=== PATIENT | male | born 1950 | race Caucasian/White ===

== ENCOUNTER → 2023-03-04 | Outpatient (CLI) | payer MEDICARE ==
[~2023-03-04] MED LIST: ACULAR 3ML 3 ML5 ML; ALDACTONE25 M1 PO; AMOXICILLIN500 MG PO; ANUSOL-HC25 MG R; ASPIRIN ADULT L81 M2; ASPIRIN FOR CHI81 MG PO; ASPIRIN81 M1 PO; AUGMENTIN 875 M1 TAB PO; BETHANECHOL CHL10 MG PO; CARDIZEM CD300 MG PO; CARDIZEM CD360 MG PO; CARDIZEM LA240 MG PO; CARISOPRODOL350 M1 PO; CATAFLAM50 MG PO; CEFTIN250 MG PO; CIPRO500 MG PO; CIPROFLOXACIN500 MG PO; CLINDAMYCIN HC300 MG PO; COLACE100 MG PO; COUMADIN5 M2 PO; COUMADIN7.5 M1 PO; Coumadin5 MG PO; Coumadin7.5 MG PO; DALI500T PO; DALIRESP PO; DAYPRO600 M1 PO; DELTASONE5 MG PO; DILTIAZEM HCL240 M1 PO; DUONEB 3 MG/3 ML3 M1 INH; DUONEB 3 MG/3 ML3 M1 NEB; EFFIENT10 MG; FLEXERIL10 MG PO; FLEXERIL5 MG PO; FUROSEMIDE40 MG PO; HYDROCODONE BIT1 T11 PO; ISOSORBIDE30 MG PO; JANTOVEN5 MG PO; K-DUR 1010 MEQ; K-Dur 20MEQ20 MEQ PO; KCL PO; KLOR-CON M1010 MEQ PO; KLOR-CON M2020 MEQ PO; LASIX40 MG; LASIX40 MG PO; LEVAQUIN750 MG PO; LIDODERM 5% PATC1 EA T; LOMOTIL 0.025 M1 TA1 PO; LOPRESSOR50 MG; LOPRESSOR50 MG PO; MEDROL DOSEPAK4 MG PO; METHOCARBAMOL750 MG PO; METRONIDAZOLE500 MG PO; MIRALAX POWDER17 G1 PO; MIRALAX17 GM/DOSE PO; MUCINEX600 MG PO; NAPROSYN500 MG PO; NITROSTAT0.4 MG SL; NORCO 325 MG-51 TAB PO; NYSTATIN CREAM15 GM T; OCUFLOX 0.3% 5 M5 ML; OMEPRAZOLE DR20 MG PO; OXYGEN INH; PARAFON FORTE500 MG PO; PERCOCET 325 MG1 TA5 PO; PERCOCET 325 MG1 TA7 PO; PERCOCET 325 MG1 TA8 PO; POTASSIUM CHLO10 ME4 PO; POTASSIUM GLUCO80 MG PO; PRAVACHOL40 MG; PRAVACHOL40 MG PO; PREDNICOT20 MG PO; PREDNISONE20 MG PO; PRENATAL1 TA1 PO; PRILOSEC20 M1 PO; PRILOSEC20 MG PO; PROTONIX40 MG PO; PULMICORT RESP0.5 M1 INH; Percocet 325 MG1 TAB PO; ROBAXIN750 MG PO; ROBITUSSIN DM120 ML PO; SHOWERCH; SPIRIVA18 MCG PO; SYMBICORT1 AE1 INH; TOBREX OPHTH S2.5 ML OPH; TRAMADOL HCL50 MG PO; VIBRAMYCIN100 MG PO; VICODIN 5/500 505 MG PO; VICODIN 500 MG-1 TAB PO; VITAMIN D2000 IU PO; VOLTAREN50 M1 PO; ZESTRIL,PRINIVI10 MG; ZITHROMAX250 MG PO; ZOCOR40 MG; ZOCOR40 MG PO; ZOFRAN ODT4 MG SL; ZYLOPRIM100 MG PO; [UNRECOGNIZED DRUG - OTHER]
[2023-03-04 14:03] LABS: BASO # 0.1 10*3/uL (0.0-0.1); BASO % 0.7 % (0.0-1.0); EOS # 0.3 10*3/uL (0.0-0.4); EOS % 3.3 % (1.0-4.0); HEMATOCRIT 39.7 % (42.0-52.0); LYMPH # 1.7 10*3/uL (1.3-4.4); LYMPH % 20.9 % (27.0-41.0); MEAN CELL VOLUME 96.4 fl (80.0-94.0); MEAN CORPUSCULAR HGB 31.8 pg (27.0-31.0); MEAN PLATELET VOLUME 9.9 fl (9.6-12.3); MONO % 12.6 % (3.0-9.0); NEUT # 5.2 10*3/uL (2.3-7.9); NEUT % 62.3 % (47.0-73.0); PLATELET COUNT AUTOMATED 203 10*3/uL (130-400); RED BLOOD COUNT 4.12 10*6/uL (4.50-5.90); RED CELL DISTRI WIDTH 14.2 % (0-14.5); WHITE BLOOD COUNT 8.3 10*3/uL (4.8-10.8)
[2023-03-04 14:59] LABS: ALKALINE PHOSPHATASE 97 U/L (46-116); BUN 17 mg/dl (9-23); CHLORIDE 108 mmol/L (98-107); CHOLESTEROL 141 mg/dL (<200); LDL CHOLESTEROL 65 mg/dL (9-159); POTASSIUM 3.7 mmol/L (3.4-5.1); SGPT/ALT 16 U/L (10-49); TOTAL PROTEIN 6.3 gm/dL (6.0-8.0); TRIGLYCERIDES 93 mg/dl (<150)
== END | disposition home or self-care (01) ==
LOC: LAB 13:39
PROVIDERS: ATTEND Nurse Practitioner Family
DX: Z12.5 Encounter for screening for malignant neoplasm of prostate (principal); I48.91 Unspecified atrial fibrillation; E11.51 Type 2 diabetes mellitus with diabetic peripheral angiopathy without gangrene; I10 Essential (primary) hypertension; J44.9 Chronic obstructive pulmonary disease, unspecified; Z79.899 Other long term (current) drug therapy

== ENCOUNTER → 2023-03-16 | Outpatient (CLI) | payer MEDICARE | END | disposition home or self-care (01) | LOC: LAB 09:40 | PROVIDERS: ATTEND Nurse Practitioner Family | DX: R31.9 Hematuria, unspecified (principal) ==

== ENCOUNTER → 2023-06-02 | Outpatient (CLI) | payer MEDICARE ==
[2023-06-02 14:42] LABS: BASO # 0.1 10*3/uL (0.0-0.1); BASO % 0.7 % (0.0-1.0); EOS # 0.4 10*3/uL (0.0-0.4); HEMATOCRIT 39.8 % (42.0-52.0); LYMPH # 1.7 10*3/uL (1.3-4.4); LYMPH % 16.8 % (27.0-41.0); MEAN CELL VOLUME 100.8 fl (80.0-94.0); MEAN CORPUSCULAR HGB 32.9 pg (27.0-31.0); MEAN CORPUSCULAR HGB CONC 32.7 g/dl (33.0-37.0); MEAN PLATELET VOLUME 9.9 fl (9.6-12.3); MONO # 1.1 10*3/uL (0.1-1.0); MONO % 10.9 % (3.0-9.0); NEUT # 6.7 10*3/uL (2.3-7.9); NEUT % 67.3 % (47.0-73.0); PLATELET COUNT AUTOMATED 235 10*3/uL (130-400); RED BLOOD COUNT 3.95 10*6/uL (4.50-5.90); RED CELL DISTRI WIDTH 13.2 % (0-14.5)
[2023-06-02 15:00] LABS: URINE CREATININE RANDOM 132.76 mg/dL
[2023-06-02 15:01] LABS: ALKALINE PHOSPHATASE 85 U/L (46-116); BUN 19 mg/dl (9-23); CHLORIDE 108 mmol/L (98-107); CHOLESTEROL 129 mg/dL (<200); LDL CHOLESTEROL 58 mg/dL (9-159); POTASSIUM 4.5 mmol/L (3.4-5.1); SGPT/ALT 16 U/L (5-49); TOTAL PROTEIN 6.7 gm/dL (6.0-8.0); TRIGLYCERIDES 70 mg/dl (<150)
== END | disposition home or self-care (01) ==
LOC: LAB 14:10
PROVIDERS: ATTEND Nurse Practitioner Family
DX: R31.9 Hematuria, unspecified (principal); I48.20 Chronic atrial fibrillation, unspecified; G89.29 Other chronic pain; Z79.899 Other long term (current) drug therapy

== ENCOUNTER → 2023-06-07 | Outpatient (CLI) | payer MEDICARE | END | disposition home or self-care (01) | LOC: LAB 12:09 | PROVIDERS: ATTEND Nurse Practitioner Family | DX: D64.9 Anemia, unspecified (principal); R89.9 Unspecified abnormal finding in specimens from other organs, systems and tissues ==

== ENCOUNTER → 2023-09-16 | Outpatient (CLI) | payer MEDICARE ==
[2023-09-16 12:47] LABS: BASO # 0.1 10*3/uL (0.0-0.1); BASO % 0.8 % (0.0-1.0); EOS # 0.2 10*3/uL (0.0-0.4); EOS % 3.1 % (1.0-4.0); HEMATOCRIT 40.3 % (42.0-52.0); LYMPH # 1.5 10*3/uL (1.3-4.4); LYMPH % 19.6 % (27.0-41.0); MEAN CELL VOLUME 101.3 fl (80.0-94.0); MEAN CORPUSCULAR HGB 31.9 pg (27.0-31.0); MEAN CORPUSCULAR HGB CONC 31.5 g/dl (33.0-37.0); MEAN PLATELET VOLUME 9.7 fl (9.6-12.3); MONO # 0.8 10*3/uL (0.1-1.0); MONO % 10.8 % (3.0-9.0); NEUT # 5.1 10*3/uL (2.3-7.9); NEUT % 65.4 % (47.0-73.0); PLATELET COUNT AUTOMATED 186 10*3/uL (130-400); RED BLOOD COUNT 3.98 10*6/uL (4.50-5.90); RED CELL DISTRI WIDTH 13.6 % (0-14.5); WHITE BLOOD COUNT 7.8 10*3/uL (4.8-10.8)
[2023-09-16 14:04] LABS: ALKALINE PHOSPHATASE 90 U/L (46-116); BUN 13 mg/dl (9-23); CHLORIDE 105 mmol/L (98-107); CHOLESTEROL 126 mg/dL (<200); LDL CHOLESTEROL 54 mg/dL (9-159); POTASSIUM 3.8 mmol/L (3.4-5.1); SGPT/ALT 14 U/L (5-49); TOTAL PROTEIN 6.4 gm/dL (6.0-8.0); TRIGLYCERIDES 73 mg/dl (<150)
[2023-09-16 14:38] LABS: URINE CREATININE RANDOM 125.21 mg/dL
== END | disposition home or self-care (01) ==
LOC: LAB 12:29
PROVIDERS: ATTEND Nurse Practitioner Family
DX: E11.51 Type 2 diabetes mellitus with diabetic peripheral angiopathy without gangrene (principal); I48.20 Chronic atrial fibrillation, unspecified; D64.9 Anemia, unspecified; R31.9 Hematuria, unspecified; Z79.899 Other long term (current) drug therapy; G89.29 Other chronic pain

== ENCOUNTER → 2023-12-02 | Outpatient (CLI) | payer MEDICARE, OTHER ==
[2023-12-02 11:50] LABS: BASO # 0.1 10*3/uL (0.0-0.1); BASO % 0.7 % (0.0-1.0); EOS # 0.5 10*3/uL (0.0-0.4); EOS % 7.1 % (1.0-4.0); HEMATOCRIT 39.9 % (42.0-52.0); LYMPH # 1.9 10*3/uL (1.3-4.4); LYMPH % 25.4 % (27.0-41.0); MEAN CELL VOLUME 99.3 fl (80.0-94.0); MEAN CORPUSCULAR HGB 32.3 pg (27.0-31.0); MEAN CORPUSCULAR HGB CONC 32.6 g/dl (33.0-37.0); MEAN PLATELET VOLUME 9.8 fl (9.6-12.3); MONO # 0.7 10*3/uL (0.1-1.0); MONO % 9.5 % (3.0-9.0); NEUT # 4.2 10*3/uL (2.3-7.9); NEUT % 57.2 % (47.0-73.0); PLATELET COUNT AUTOMATED 187 10*3/uL (130-400); RED BLOOD COUNT 4.02 10*6/uL (4.50-5.90); RED CELL DISTRI WIDTH 14.1 % (0-14.5); WHITE BLOOD COUNT 7.3 10*3/uL (4.8-10.8)
[2023-12-02 12:00] LABS: URINE CREATININE RANDOM 135.65 mg/dL
[2023-12-02 12:09] LABS: ALKALINE PHOSPHATASE 106 U/L (46-116); BUN 13 mg/dl (9-23); CHLORIDE 104 mmol/L (98-107); CHOLESTEROL 144 mg/dL (<200); LDL CHOLESTEROL 73 mg/dL (9-159); POTASSIUM 3.9 mmol/L (3.4-5.1); SGPT/ALT 12 U/L (5-49); TOTAL PROTEIN 6.6 gm/dL (6.0-8.0); TRIGLYCERIDES 69 mg/dl (<150)
== END | disposition home or self-care (01) ==
LOC: LAB 11:26
PROVIDERS: ATTEND Nurse Practitioner Family
DX: I48.20 Chronic atrial fibrillation, unspecified (principal); G89.29 Other chronic pain; Z79.899 Other long term (current) drug therapy

== ENCOUNTER 2024-02-07 19:05 | Emergency (ER) | payer MEDICARE, OTHER ==
[~2024-02-07] VITALS: Ht 172.7 cm; Wt 122.5 kg
[2024-02-07 19:31] VITALS: BP 108/44
== END 2024-02-07 21:52 | disposition home or self-care (01) ==
LOC: ED 19:05
DX: S83.91XA Sprain of unspecified site of right knee, initial encounter (principal); I11.0 Hypertensive heart disease with heart failure; I25.10 Atherosclerotic heart disease of native coronary artery without angina pectoris; J44.9 Chronic obstructive pulmonary disease, unspecified; I50.9 Heart failure, unspecified; I48.91 Unspecified atrial fibrillation; Z96.651 Presence of right artificial knee joint; Z90.49 Acquired absence of other specified parts of digestive tract; Z98.890 Other specified postprocedural states; X50.1XXA Overexertion from prolonged static or awkward postures, initial encounter; Y93.01 Activity, walking, marching and hiking; Y92.89 Other specified places as the place of occurrence of the external cause; Y99.8 Other external cause status

== ENCOUNTER → 2024-03-01 | Outpatient (CLI) | payer MEDICARE, OTHER ==
[2024-03-01 14:23] LABS: BASO # 0.1 10*3/uL (0.0-0.1); EOS # 0.4 10*3/uL (0.0-0.4); HEMATOCRIT 39.6 % (42.0-52.0); LYMPH # 1.7 10*3/uL (1.3-4.4); LYMPH % 22.1 % (27.0-41.0); MEAN CELL VOLUME 98.8 fl (80.0-94.0); MEAN CORPUSCULAR HGB 33.2 pg (27.0-31.0); MEAN CORPUSCULAR HGB CONC 33.6 g/dl (33.0-37.0); MEAN PLATELET VOLUME 9.9 fl (9.6-12.3); MONO % 12.2 % (3.0-9.0); NEUT # 4.6 10*3/uL (2.3-7.9); NEUT % 59.4 % (47.0-73.0); PLATELET COUNT AUTOMATED 158 10*3/uL (130-400); RED BLOOD COUNT 4.01 10*6/uL (4.50-5.90); RED CELL DISTRI WIDTH 13.8 % (0-14.5); WHITE BLOOD COUNT 7.8 10*3/uL (4.8-10.8)
[2024-03-01 14:58] LABS: ALKALINE PHOSPHATASE 94 U/L (46-116); BUN 12 mg/dl (9-23); CHLORIDE 107 mmol/L (98-107); CHOLESTEROL 132 mg/dL (<200); LDL CHOLESTEROL 52 mg/dL (9-159); SGPT/ALT 15 U/L (5-49); TOTAL PROTEIN 6.2 gm/dL (6.0-8.0); TRIGLYCERIDES 106 mg/dl (<150)
== END | disposition home or self-care (01) ==
LOC: LAB 14:00
PROVIDERS: ATTEND Nurse Practitioner Family
DX: J44.9 Chronic obstructive pulmonary disease, unspecified (principal); G89.29 Other chronic pain; Z79.899 Other long term (current) drug therapy

== ENCOUNTER → 2024-03-13 | Outpatient (CLI) | payer MEDICARE, OTHER | END | disposition home or self-care (01) | LOC: ORTHO 10:49 | PROVIDERS: ATTEND Orthopaedic Surgery | DX: M17.12 Unilateral primary osteoarthritis, left knee (principal) ==

== ENCOUNTER → 2024-06-08 | Outpatient (CLI) | payer OTHER ==
[~2024-06-08] MED LIST changes: +DOXYCYCLINE HY100 M3 PO; +ELIQUIS5 M1 PO; +METFORMIN HYD1000 MG PO; +METOPROLOL SUCC25 M2 PO; +PENTOXIFYLLINE400 MG PO
[2024-06-08 14:13] LABS: BASO # 0.1 10*3/uL (0.0-0.1); BASO % 0.6 % (0.0-1.0); EOS # 0.4 10*3/uL (0.0-0.4); EOS % 4.8 % (1.0-4.0); HEMATOCRIT 42.8 % (42.0-52.0); MEAN CELL VOLUME 102.1 fl (80.0-94.0); MEAN CORPUSCULAR HGB 32.7 pg (27.0-31.0); MEAN PLATELET VOLUME 10.2 fl (9.6-12.3); MONO # 1.1 10*3/uL (0.1-1.0); MONO % 13.3 % (3.0-9.0); NEUT % 60.7 % (47.0-73.0); PLATELET COUNT AUTOMATED 172 10*3/uL (130-400); RED BLOOD COUNT 4.19 10*6/uL (4.50-5.90); RED CELL DISTRI WIDTH 13.6 % (0-14.5); WHITE BLOOD COUNT 8.2 10*3/uL (4.8-10.8)
[2024-06-08 14:24] LABS: ACT PARTIAL THROMBO TIME 28.8 SECONDS (20.0-32.1)
[2024-06-08 14:36] LABS: ALKALINE PHOSPHATASE 97 U/L (46-116); BUN 12 mg/dl (9-23); CHLORIDE 107 mmol/L (98-107); POTASSIUM 4.6 mmol/L (3.4-5.1); SGPT/ALT 12 U/L (5-49); TOTAL PROTEIN 6.7 gm/dL (6.0-8.0)
== END | disposition home or self-care (01) ==
LOC: LAB 13:40
PROVIDERS: ATTEND Student in an Organized Health Care Education/Training Program
DX: I48.91 Unspecified atrial fibrillation (principal); I49.3 Ventricular premature depolarization; I44.7 Left bundle-branch block, unspecified; I51.7 Cardiomegaly; Z95.1 Presence of aortocoronary bypass graft; Z71.89 Other specified counseling

== ENCOUNTER 2024-08-14 11:24 | Observation (INO) | payer OTHER ==
[~2024-08-14] VITALS: Ht 170.1 cm; Wt 108.9 kg
[2024-08-14 11:52] VITALS: BP 128/45
[2024-08-14 12:10] LABS: BASO # 0.1 10*3/uL (0.0-0.1); EOS # 0.3 10*3/uL (0.0-0.4); EOS % 4.1 % (1.0-4.0); MEAN CELL VOLUME 98.4 fl (80.0-94.0); MEAN CORPUSCULAR HGB 32.8 pg (27.0-31.0); MEAN CORPUSCULAR HGB CONC 33.3 g/dl (33.0-37.0); MEAN PLATELET VOLUME 9.8 fl (9.6-12.3); MONO # 0.6 10*3/uL (0.1-1.0); MONO % 9.2 % (3.0-9.0); NEUT # 4.4 10*3/uL (2.3-7.9); NEUT % 63.1 % (47.0-73.0); PLATELET COUNT AUTOMATED 202 10*3/uL (130-400); RED BLOOD COUNT 4.27 10*6/uL (4.50-5.90); RED CELL DISTRI WIDTH 13.4 % (0-14.5)
[2024-08-14 12:32] LABS: ALKALINE PHOSPHATASE 97 U/L (46-116); BUN 15 mg/dl (9-23); CHLORIDE 104 mmol/L (98-107); POTASSIUM 3.7 mmol/L (3.4-5.1); SGPT/ALT 17 U/L (5-49); TOTAL PROTEIN 6.4 gm/dL (6.0-8.0)
[2024-08-14] MEDS ORDERED: ACETAMINOPHEN 325 MG TAB PO PRN (15:15)
[2024-08-14] MEDS ORDERED: BISACODYL 5 MG TAB PO PRN (15:15)
[2024-08-14] MEDS ORDERED: Acetaminophen/Hydrocodone 5 MG/325 MG TABLET PO PRN (15:15)
[2024-08-14] MEDS ORDERED: DEXTROSE 10 % IN WATER 250 ML IV PRN (15:20)
[2024-08-14] MEDS ORDERED: ASPIRIN 325 MG TAB PO ONE (15:30)
[2024-08-14 16:03] VITALS: BP 121/60
[2024-08-14] MEDS ORDERED: INSULIN LISPRO 1 UNIT/0.01 ML SQ SCH (16:30)
[2024-08-14 20:23] VITALS: BP 127/41
[2024-08-14] MEDS ORDERED: APIXABAN 5 MG TAB PO SCH (22:00)
[2024-08-15] MEDS ORDERED: Regadenoson 0.4 MG/5 ML SYR IV ONE (05:24)
[2024-08-15 06:35] LABS: ACT PARTIAL THROMBO TIME 29.7 SECONDS (20.0-32.1)
[2024-08-15 06:41] LABS: BASO # 0.1 10*3/uL (0.0-0.1); BASO % 0.8 % (0.0-1.0); EOS # 0.5 10*3/uL (0.0-0.4); EOS % 6.3 % (1.0-4.0); HEMATOCRIT 42.2 % (42.0-52.0); MEAN CORPUSCULAR HGB 32.6 pg (27.0-31.0); MEAN CORPUSCULAR HGB CONC 32.5 g/dl (33.0-37.0); MEAN PLATELET VOLUME 10.4 fl (9.6-12.3); MONO # 0.9 10*3/uL (0.1-1.0); MONO % 10.6 % (3.0-9.0); NEUT % 58.8 % (47.0-73.0); PLATELET COUNT AUTOMATED 189 10*3/uL (130-400); RED CELL DISTRI WIDTH 13.5 % (0-14.5); WHITE BLOOD COUNT 8.4 10*3/uL (4.8-10.8)
[2024-08-15 06:42] LABS: MEAN CELL VOLUME 100.5 fl (80.0-94.0)
[2024-08-15 07:07] LABS: ALKALINE PHOSPHATASE 90 U/L (46-116); BUN 15 mg/dl (9-23); CHLORIDE 105 mmol/L (98-107); CHOLESTEROL 129 mg/dL (<200); LDL CHOLESTEROL 66 mg/dL (9-159); SGPT/ALT 17 U/L (5-49); TOTAL PROTEIN 6.1 gm/dL (6.0-8.0); TRIGLYCERIDES 65 mg/dl (<150)
[2024-08-15 08:05] LABS: VITAMIN D, 25-HYDROXY 45.3 ng/mL (30-100)
[2024-08-15] MEDS ORDERED: PERFLUTREN PROTEIN-A MICROSPHR 3 ML VIAL IV ONE (09:07)
[2024-08-15] MEDS ORDERED: ATORVASTATIN CALCIUM 40 MG TABLET PO SCH (10:00)
[2024-08-15] MEDS ORDERED: ASPIRIN, CHEWABLE 81 MG TAB PO SCH (10:00)
[2024-08-15] MEDS ORDERED: METOPROLOL SUCCINATE XR 25 MG TAB PO SCH (10:00)
[2024-08-15 11:09] VITALS: BP 118/56
[2024-08-15 12:00] VITALS: BP 118/56
== END 2024-08-15 17:09 | disposition left against medical advice (07) ==
LOC: ED 11:24 → EDHOLD 14:45 → 4E 08-15 09:17 → EDHOLD 08-15 09:17
PROVIDERS: Nurse Practitioner Family; Student in an Organized Health Care Education/Training Program; ADMIT Internal Medicine; ATTEND Internal Medicine
DX: E11.65 Type 2 diabetes mellitus with hyperglycemia (principal); R07.89 Other chest pain; E44.0 Moderate protein-calorie malnutrition; R06.02 Shortness of breath; R06.00 Dyspnea, unspecified; R60.0 Localized edema; J96.11 Chronic respiratory failure with hypoxia; I48.20 Chronic atrial fibrillation, unspecified; J44.9 Chronic obstructive pulmonary disease, unspecified; I25.10 Atherosclerotic heart disease of native coronary artery without angina pectoris; I73.9 Peripheral vascular disease, unspecified; Z79.4 Long term (current) use of insulin; Z79.899 Other long term (current) drug therapy

== ENCOUNTER → 2025-03-29 | Outpatient (CLI) | payer OTHER, MEDICAID | END | disposition home or self-care (01) | LOC: RAD 11:04 | PROVIDERS: ATTEND Nurse Practitioner Family | DX: M51.360 Other intervertebral disc degeneration, lumbar region with discogenic back pain only (principal) ==

== ENCOUNTER → 2025-04-02 | Outpatient (CLI) | payer OTHER, MEDICAID | END | disposition home or self-care (01) | LOC: CARD 14:45 | PROVIDERS: ATTEND Internal Medicine Cardiovascular Disease | DX: Z01.810 Encounter for preprocedural cardiovascular examination (principal); I48.91 Unspecified atrial fibrillation ==

== ENCOUNTER 2025-04-04 12:57 | Emergency (ER) | payer OTHER, MEDICAID ==
[2025-04-04 13:04] VITALS: BP 148/92
== END 2025-04-04 13:45 | disposition home or self-care (01) ==
LOC: ED 12:57
DX: H93.13 Tinnitus, bilateral (principal); H61.22 Impacted cerumen, left ear; Z87.891 Personal history of nicotine dependence; Z90.49 Acquired absence of other specified parts of digestive tract; Z98.890 Other specified postprocedural states; Z96.651 Presence of right artificial knee joint; Z79.899 Other long term (current) drug therapy

== ENCOUNTER 2025-04-30 14:38 | Inpatient (IN) | payer OTHER, MEDICAID ==
[~2025-04-30] VITALS: Ht 172.7 cm; Wt 136.2 kg
[2025-04-30 14:46] VITALS: BP 122/45
[2025-04-30] MEDS ORDERED: HYDROmorphONE Hydrochloride 0.5 MG/0.5 ML SYRINGE IV ONE ×2 (15:10→17:40)
[2025-04-30] MEDS ORDERED: SODIUM CHLORIDE 0.9% 500 ML IV ONE (15:10)
[2025-04-30] MEDS ORDERED: Ondansetron Hydrochloride 4 MG/2 ML VIAL IV ONE (15:10)
[2025-04-30] MEDS ORDERED: IOHEXOL 300 MG/ML 100 ML VIAL IV ONE (15:15)
[2025-04-30 15:26] LABS: BASO # 0.0 10*3/uL (0.0-0.1); BASO % 0.4 % (0.0-1.0); EOS # 0.4 10*3/uL (0.0-0.4); EOS % 3.7 % (1.0-4.0); MEAN CELL VOLUME 101.3 fl (80.0-94.0); MEAN CORPUSCULAR HGB 33.1 pg (27.0-31.0); MEAN PLATELET VOLUME 9.7 fl (9.6-12.3); MONO # 1.0 10*3/uL (0.1-1.0); MONO % 10.1 % (3.0-9.0); NEUT # 7.1 10*3/uL (2.3-7.9); NEUT % 73.7 % (47.0-73.0); NUCLEATED RED BLOOD CELL 0.0 % (0.0-0.0); NUCLEATED RED BLOOD CELL 0.0 10*3/uL (0.0-0.0); PLATELET COUNT AUTOMATED 207 10*3/uL (130-400); RED CELL DISTRI WIDTH 13.4 % (0-14.5)
[2025-04-30 15:48] LABS: BUN 14 mg/dl (9-23); SGPT/ALT 18 U/L (5-49)
[2025-04-30 20:07] VITALS: BP 123/52
[2025-04-30] MEDS ORDERED: ACETAMINOPHEN 325 MG TAB PO PRN (20:15)
[2025-04-30] MEDS ORDERED: Ondansetron Hydrochloride 4 MG/2 ML VIAL IV PRN (20:15)
[2025-04-30] MEDS ORDERED: SODIUM CHLORIDE 0.9% 1,000 ML IV SCH (20:30)
[2025-04-30] MEDS ORDERED: DEXTROSE 50% 25 GM/50 ML VIAL IV PRN (20:40)
[2025-04-30] MEDS ORDERED: BUDESONIDE 0.5 MG AMP NEB SCH (20:50)
[2025-04-30 21:20] LABS: BILIRUBIN Negative (Negative); BLOOD 3+ (Negative); CLARITY Clear (Clear); COLOR Yellow (Yellow); KETONE Negative (Negative); LEUKO ESTERASE 1+ (Negative); NITRITE Negative (Negative); PH 5.5 (4.5-8.0); SPECIFIC GRAVITY >= 1.030 (1.001-1.030); UROBILINOGEN 0.2 E.U./dl (0.0-1.0)
[2025-04-30 21:33] LABS: BACTERIA 1+; RBC TNTC rbc/hpf (0-2)
[2025-04-30] MEDS ORDERED: INSULIN LISPRO 1 UNIT/0.01 ML SQ SCH (22:00)
[2025-05-01 01:12] VITALS: BP 100/41
[2025-05-01] MEDS ORDERED: PANTOPRAZOLE SODIUM IV SCH (06:00)
[2025-05-01 06:15] LABS: ACT PARTIAL THROMBO TIME 28.0 SECONDS (20.0-32.1)
[2025-05-01 06:38] LABS: FREE T4 0.88 ng/dl (0.89-1.76)
[2025-05-01 08:00] VITALS: BP 103/52
[2025-05-01] MEDS ORDERED: METOPROLOL SUCCINATE XR 25 MG TAB PO SCH (10:00)
[2025-05-01] MEDS ORDERED: Budesonide/Formoterol Fumarate 160/4.5 inhaler INH SCH (10:00)
== END 2025-05-01 11:13 | disposition home or self-care (01) | DRG 392 ==
LOC: ED 14:38 → EDHOLD 19:55 → 5E 19:55
PROVIDERS: Nurse Practitioner Family; ADMIT Internal Medicine; ATTEND Internal Medicine
DX: K59.9 Functional intestinal disorder, unspecified (principal); N39.0 Urinary tract infection, site not specified; K56.7 Ileus, unspecified; I48.20 Chronic atrial fibrillation, unspecified; E44.0 Moderate protein-calorie malnutrition; Z68.42 Body mass index [BMI] 45.0-49.9, adult; K74.60 Unspecified cirrhosis of liver; I25.10 Atherosclerotic heart disease of native coronary artery without angina pectoris; I10 Essential (primary) hypertension; J44.9 Chronic obstructive pulmonary disease, unspecified; N28.1 Cyst of kidney, acquired; E11.65 Type 2 diabetes mellitus with hyperglycemia; D53.9 Nutritional anemia, unspecified; E11.42 Type 2 diabetes mellitus with diabetic polyneuropathy; Z96.651 Presence of right artificial knee joint; Z93.3 Colostomy status; Z79.899 Other long term (current) drug therapy; Z79.01 Long term (current) use of anticoagulants; Z79.2 Long term (current) use of antibiotics; Z90.49 Acquired absence of other specified parts of digestive tract; Z87.891 Personal history of nicotine dependence; Z82.49 Family history of ischemic heart disease and other diseases of the circulatory system; Z80.8 Family history of malignant neoplasm of other organs or systems

== ENCOUNTER → 2025-05-17 | Outpatient (CLI) | payer OTHER, MEDICAID | END | disposition home or self-care (01) | LOC: RAD 09:46 | PROVIDERS: ATTEND Nurse Practitioner Family | DX: J44.1 Chronic obstructive pulmonary disease with (acute) exacerbation (principal); R06.09 Other forms of dyspnea ==

== ENCOUNTER → 2025-05-22 | Outpatient (CLI) | payer OTHER, MEDICAID | END | disposition home or self-care (01) | LOC: WOUNDCARE 04:22 | PROVIDERS: ATTEND Nurse Practitioner Family | DX: E11.622 Type 2 diabetes mellitus with other skin ulcer (principal); L97.812 Non-pressure chronic ulcer of other part of right lower leg with fat layer exposed; L97.822 Non-pressure chronic ulcer of other part of left lower leg with fat layer exposed; L89.311 Pressure ulcer of right buttock, stage 1; I89.0 Lymphedema, not elsewhere classified; I87.2 Venous insufficiency (chronic) (peripheral); R60.9 Edema, unspecified; B35.1 Tinea unguium; L60.1 Onycholysis; J44.9 Chronic obstructive pulmonary disease, unspecified; I48.91 Unspecified atrial fibrillation; I25.10 Atherosclerotic heart disease of native coronary artery without angina pectoris; E11.51 Type 2 diabetes mellitus with diabetic peripheral angiopathy without gangrene; Z87.891 Personal history of nicotine dependence; Z96.651 Presence of right artificial knee joint; Z95.5 Presence of coronary angioplasty implant and graft; Z93.3 Colostomy status; Z86.73 Personal history of transient ischemic attack (TIA), and cerebral infarction without residual deficits ==

== ENCOUNTER → 2025-05-29 | Outpatient (CLI) | payer OTHER, MEDICAID | END | disposition home or self-care (01) | LOC: WOUNDCARE 03:09 | PROVIDERS: ATTEND Nurse Practitioner Family | DX: L89.311 Pressure ulcer of right buttock, stage 1 (principal); E11.622 Type 2 diabetes mellitus with other skin ulcer; L97.812 Non-pressure chronic ulcer of other part of right lower leg with fat layer exposed; L97.822 Non-pressure chronic ulcer of other part of left lower leg with fat layer exposed; I89.0 Lymphedema, not elsewhere classified; I87.2 Venous insufficiency (chronic) (peripheral); R60.9 Edema, unspecified; B35.1 Tinea unguium; L60.1 Onycholysis; J44.9 Chronic obstructive pulmonary disease, unspecified; I48.91 Unspecified atrial fibrillation; I25.10 Atherosclerotic heart disease of native coronary artery without angina pectoris; E11.51 Type 2 diabetes mellitus with diabetic peripheral angiopathy without gangrene; Z87.891 Personal history of nicotine dependence; Z96.651 Presence of right artificial knee joint; Z95.5 Presence of coronary angioplasty implant and graft; Z93.3 Colostomy status ==

== ENCOUNTER → 2025-06-07 | Outpatient (CLI) | payer OTHER, MEDICAID | END | disposition home or self-care (01) | LOC: WOUNDCARE 02:52 | PROVIDERS: ATTEND Nurse Practitioner Family | DX: L89.311 Pressure ulcer of right buttock, stage 1 (principal); E11.622 Type 2 diabetes mellitus with other skin ulcer; L97.812 Non-pressure chronic ulcer of other part of right lower leg with fat layer exposed; L97.822 Non-pressure chronic ulcer of other part of left lower leg with fat layer exposed; I87.2 Venous insufficiency (chronic) (peripheral); I89.0 Lymphedema, not elsewhere classified; R60.9 Edema, unspecified; B35.1 Tinea unguium; L60.1 Onycholysis; E11.51 Type 2 diabetes mellitus with diabetic peripheral angiopathy without gangrene; I48.91 Unspecified atrial fibrillation; I25.10 Atherosclerotic heart disease of native coronary artery without angina pectoris; J44.9 Chronic obstructive pulmonary disease, unspecified; Z87.891 Personal history of nicotine dependence; Z96.651 Presence of right artificial knee joint; Z95.5 Presence of coronary angioplasty implant and graft; Z93.3 Colostomy status; Z86.73 Personal history of transient ischemic attack (TIA), and cerebral infarction without residual deficits ==

== ENCOUNTER → 2025-06-08 | Outpatient (CLI) | payer OTHER, MEDICAID | END | disposition home or self-care (01) | LOC: WOUNDCARE 09:21 | PROVIDERS: ATTEND Nurse Practitioner Family | DX: L89.892 Pressure ulcer of other site, stage 2 (principal); E11.622 Type 2 diabetes mellitus with other skin ulcer; L97.812 Non-pressure chronic ulcer of other part of right lower leg with fat layer exposed; L97.822 Non-pressure chronic ulcer of other part of left lower leg with fat layer exposed; L89.311 Pressure ulcer of right buttock, stage 1; L60.1 Onycholysis; I89.0 Lymphedema, not elsewhere classified; I87.2 Venous insufficiency (chronic) (peripheral); R60.9 Edema, unspecified; E11.51 Type 2 diabetes mellitus with diabetic peripheral angiopathy without gangrene; B35.1 Tinea unguium; J44.9 Chronic obstructive pulmonary disease, unspecified; I48.91 Unspecified atrial fibrillation; I25.10 Atherosclerotic heart disease of native coronary artery without angina pectoris; Z86.73 Personal history of transient ischemic attack (TIA), and cerebral infarction without residual deficits; Z87.891 Personal history of nicotine dependence; Z96.651 Presence of right artificial knee joint; Z95.5 Presence of coronary angioplasty implant and graft; Z93.3 Colostomy status ==

== ENCOUNTER → 2025-06-15 | Outpatient (CLI) | payer OTHER, MEDICAID | LOC: WOUNDCARE 03:03 | PROVIDERS: ATTEND Nurse Practitioner Family | DX: L89.311 Pressure ulcer of right buttock, stage 1 (principal); E11.622 Type 2 diabetes mellitus with other skin ulcer; L97.812 Non-pressure chronic ulcer of other part of right lower leg with fat layer exposed; L97.822 Non-pressure chronic ulcer of other part of left lower leg with fat layer exposed; I89.0 Lymphedema, not elsewhere classified; I87.2 Venous insufficiency (chronic) (peripheral); R60.9 Edema, unspecified; B35.1 Tinea unguium; L60.1 Onycholysis; J44.9 Chronic obstructive pulmonary disease, unspecified; I48.91 Unspecified atrial fibrillation; I25.10 Atherosclerotic heart disease of native coronary artery without angina pectoris; E11.51 Type 2 diabetes mellitus with diabetic peripheral angiopathy without gangrene; Z86.73 Personal history of transient ischemic attack (TIA), and cerebral infarction without residual deficits; Z96.651 Presence of right artificial knee joint; Z95.1 Presence of aortocoronary bypass graft; Z93.3 Colostomy status ==

== ENCOUNTER → 2025-06-25 | Outpatient (CLI) | payer OTHER, MEDICAID | END | disposition home or self-care (01) | LOC: WOUNDCARE 02:51 | PROVIDERS: ATTEND Nurse Practitioner Family | DX: L89.311 Pressure ulcer of right buttock, stage 1 (principal); E11.622 Type 2 diabetes mellitus with other skin ulcer; L97.812 Non-pressure chronic ulcer of other part of right lower leg with fat layer exposed; L97.822 Non-pressure chronic ulcer of other part of left lower leg with fat layer exposed; I89.0 Lymphedema, not elsewhere classified; I87.2 Venous insufficiency (chronic) (peripheral); E11.51 Type 2 diabetes mellitus with diabetic peripheral angiopathy without gangrene; R60.9 Edema, unspecified; B35.1 Tinea unguium; L60.1 Onycholysis; J44.9 Chronic obstructive pulmonary disease, unspecified; I48.91 Unspecified atrial fibrillation; I25.10 Atherosclerotic heart disease of native coronary artery without angina pectoris; Z86.73 Personal history of transient ischemic attack (TIA), and cerebral infarction without residual deficits; Z96.651 Presence of right artificial knee joint; Z98.890 Other specified postprocedural states; Z87.891 Personal history of nicotine dependence; Z79.84 Long term (current) use of oral hypoglycemic drugs; Z79.82 Long term (current) use of aspirin; Z79.899 Other long term (current) drug therapy ==